=== PATIENT | male | born 1980 | race African-American/Black ===

== ENCOUNTER 2018-01-03 13:05 | Inpatient (IN) | payer MEDICAID ==
[~2018-01-03] VITALS: Ht 182.9 cm; Wt 99.0 kg
[2018-01-03 17:39] LABS: CHLORIDE 104 mEq/L (98-107); EOSINOPHILS % 5.2 % (0.0-5.0); HEMATOCRIT. 39.2 % (42.0-52.0); HEMOGLOBIN. 13.6 g/dL (14.0-18.0); LYMPHOCYTES % 23.7 % (20.0-50.0); MEAN CORPUSCULAR HEMOGLOBIN 29.6 pg (28.0-32.0); MEAN PLATELET VOLUME 6.7 fl (7.4-10.4); MONOCYTES % 11.9 % (2.0-8.0); NEUTROPHILS % 58.2 % (40.0-76.0); PLATELET 326 x1000/uL (130-400); RED BLOOD CELL COUNT 4.61 mill/uL (4.7-6.1); RED CELL DISTRIBUTION WIDTH 12.9 % (11.6-14.6)
[2018-01-03 17:52] LABS: PROTHROMBIN TIME 10.7 sec (9.4-11.6)
[2018-01-03] MEDS ORDERED: ENOXAPARIN 100MG/ML SYR SUBCUT ONE (19:30)
[2018-01-03] MEDS ORDERED: SODIUM CHLORIDE 0.9% 1,000 ML IV ONE (22:25)
[2018-01-03] MEDS ORDERED: IOHEXOL-350 100 ML BOTTLE ONE (22:56)
[2018-01-04 05:07] VITALS: BP 118/75
[2018-01-04 05:30] VITALS: BP 118/75
[2018-01-04 08:00] VITALS: BP 120/77
[2018-01-04] MEDS ORDERED: CLONIDINE 0.1MG TABLET PO PRN (09:30)
[2018-01-04] MEDS ORDERED: MAGNESIUM/ALUMINUM HYDROXIDE/SIMETHICONE 30ML UDC PO PRN (09:30)
[2018-01-04] MEDS ORDERED: ONDANSETRON HCL 4MG/2ML VIAL IV PRN (09:30)
[2018-01-04] MEDS: ACETAMINOPHEN 325MG TABLET PO PRN ×2 (09:39→19:53)
[2018-01-04] MEDS: ENOXAPARIN 100MG/ML SYR SUBCUT SCH ×2 (10:45→21:11)
[2018-01-04 12:00] VITALS: BP 109/76
[2018-01-04] MEDS: SODIUM CHLORIDE 0.9% INJ 3ML FLUSH IVF SCH ×2 (14:36→21:13)
[2018-01-04 16:00] VITALS: BP 107/72
[2018-01-04 20:00] VITALS: BP 118/80
[2018-01-05 00:06] VITALS: BP 112/74
[2018-01-05 03:56] VITALS: BP 110/69
[2018-01-05] MEDS: SODIUM CHLORIDE 0.9% INJ 3ML FLUSH IVF SCH (06:00)
[2018-01-05 08:00] VITALS: BP 107/67
[2018-01-05] MEDS: ACETAMINOPHEN 325MG TABLET PO PRN ×2 (09:23→20:08)
[2018-01-05] MEDS: ENOXAPARIN 100MG/ML SYR SUBCUT SCH ×2 (09:26→20:09)
[2018-01-05 12:00] VITALS: BP 105/69
[2018-01-05 17:53] LABS: CLARITY URINE CLEAR (CLEAR); COLOR URINE YELLOW (YELLOW); KETONES URINE NEGATIVE (NEGATIVE); LEUKOCYTE ESTERASE URINE NEGATIVE (NEGATIVE); NITRITE URINE NEGATIVE (NEGATIVE); OCCULT BLOOD URINE NEGATIVE (NEGATIVE); PROTEIN URINE NEGATIVE (NEGATIVE)
[2018-01-05 18:13] LABS: *AMPHETAMINES SCREEN URINE NEGATIVE (NEGATIVE); *BARBITURATES SCREEN URINE NEGATIVE (NEGATIVE); *COCAINE SCREEN URINE NEGATIVE (NEGATIVE)
[2018-01-05 18:14] LABS: *BENZODIAZEPINES SCREEN URINE NEGATIVE (NEGATIVE); CANNABINOID URINE SCREEN NEGATIVE (NEGATIVE); METHADONE URINE SCREEN NEGATIVE (NEGATIVE); PHENCYCLIDINE URINE SCREEN NEGATIVE (NEGATIVE)
[2018-01-05 18:16] LABS: OPIATES URINE SCREEN NEGATIVE (NEGATIVE)
[2018-01-05 18:55] VITALS: BP 126/78
[2018-01-05 19:36] VITALS: BP 122/84
== END 2018-01-05 20:33 | disposition home or self-care (01) | DRG 197 ==
LOC: ER 16:03 → 6WST 22:53 → EDBEDREQ 23:00 → EDBEDREQTM 23:00 → ENRESERV 01-04 03:15
PROVIDERS: ADMIT Internal Medicine; ATTEND Internal Medicine
DX: I82.4Z1 Acute embolism and thrombosis of unspecified deep veins of right distal lower extremity (principal); I26.99 Other pulmonary embolism without acute cor pulmonale; J96.00 Acute respiratory failure, unspecified whether with hypoxia or hypercapnia; Z88.0 Allergy status to penicillin; D64.9 Anemia, unspecified; Z82.49 Family history of ischemic heart disease and other diseases of the circulatory system; Z83.3 Family history of diabetes mellitus
CPT/HCPCS: 36415; 71045; 71275; 80048; 80305; 81003; 83880; 85025; 85610; 93306; 93971; J1650; J7030; Q9967